=== PATIENT | male | born 1940 | race Caucasian/White ===

== ENCOUNTER → 2018-05-15 | Day surgery (SDC) | payer OTHER ==
[~2018-05-15] MED LIST: FENTANYL CITRATE/PF 100MCG/2 ML INJ ONE; GLIMEPIRIDE PO; IOPAMIDOL 610MG/1ML 300 MG/ML VIAL IV ONE; IRON PO; LANTUS 3ML100 UNITS/ SQ; LEVOFLOXACIN 250MG/D5W 50ML 50 ML ONE; LEVOFLOXACIN 500MG/D5W 100ML 100 ML IV ONE; LIDOCAINE HCL 2% LOCAL INJ 5 ML SDV VIAL INJ ONE; METFORMIN HCL500 MG PO; MORPHINE SULFATE 2 MG/ML SYR ONE; ONDANSETRON HCL INJ 2 MG/ML VIAL ONE; PROPOFOL IV EMULSION 10 MG/ML 20 ML VIAL ONE; SEVOFLURANE INHAL SOLN 250 ML PEN BTL ONE
--- NOTE | 2018-05-15 08:56 | Diagnostic Imaging Report ---
PROCEDURE: Frontal and lateral views of the chest. COMPARISON: None. INDICATIONS: PREOPERATIVE CHEST XRAY FOR NEPHROSTOGRAM FINDINGS: Lines/tubes: None. Lungs: The lungs are moderately inflated. There is no evidence of pneumonia or pulmonary edema. A 4 mm high density nodular opacity overlying the right lower lung, likely representing calcified granuloma. Pleura: There is no pleural effusion or pneumothorax. Heart and mediastinum: The cardiomediastinal silhouette is unremarkable. The thoracic aorta is tortuous. Bones: No acute bony abnormality. IMPRESSION: No acute cardiopulmonary disease. Dictated by: JANINE BAGLEY M.D. on 05/15/2018 at 9:03 Electronically approved by: JANINE BAGLEY M.D. on 05/15/2018 at 9:03
[2018-05-15 09:02] LABS: BASOPHILS # (AUTO) 0.1 (0.0-0.1); BASOPHILS % 0.7 % (0.0-1.0); EOSINOPHILS # (AUTO) 0.2 (0.0-0.4); EOSINOPHILS % 1.3 % (0.0-6.0); HEMOGLOBIN 9.5 g/dL (14.0-18.0); LYMPHOCYTES # (AUTO) 1.2 (1.0-3.2); LYMPHOCYTES % 11.1 % (18.0-39.1); MEAN CORPUSCULAR HEMOGLOBIN 27.5 pg (28-32); MEAN CORPUSCULAR HGB CONC 31.7 g/dL (31-35); MEAN CORPUSCULAR VOLUME 86.7 fL (81-99); MONOCYTES # (AUTO) 1.1 (0.2-0.8); MONOCYTES % 10.2 % (4.4-11.3); NEUTROPHILS # (AUTO) 8.6 (2.1-6.9); NEUTROPHILS % 76.4 % (38.7-80.0); PLATELET COUNT 274 x10e3/uL (140-360); RED BLOOD COUNT 3.46 x10e6/uL (4.3-5.7); RED CELL DISTRIBUTION WIDTH 14.3 % (11.7-14.4)
[2018-05-15 09:25] LABS: ANION GAP 15.8 mmol/L (8-16); CALCIUM 10.3 mg/dL (8.4-10.2); CREATININE, SERUM 2.14 mg/dL (0.72-1.25); POTASSIUM 3.8 mmol/L (3.5-5.1)
[2018-05-15 12:35] VITALS: BP 116/68
--- NOTE | 2018-05-15 19:47 | Operative Report ---
DATE OF PROCEDURE: May 15, 2018 SERVICE: Urology PREOPERATIVE DIAGNOSES 1. Left percutaneous nephrostomy. 2. Left double J-stent. 3. Urinary retention. 4. Ureterolithiasis. 5. Microhematuria. POSTOPERATIVE DIAGNOSES 1. Left percutaneous nephrostomy. 2. Left double J-stent. 3. Urinary retention. 4. Ureterolithiasis. 5. Microhematuria. 6. Bladder stones. OPERATIONS PERFORMED 1. Nephrostogram under fluoroscopic control. This is done for assessment of the nephrostomy tube and tract. 2. Removal of the percutaneous nephrostomy under fluoroscopic control. 3. Cystoscopy and cystolitholapaxy with removal of multiple bladder stones after fragmentation with the Holmium laser. Stones are larger than 2.5 cm. 4. Removal of double J-stent from the left side. 5. Left retrograde pyelograms under fluoroscopic control. 6. Ureteroscopy with laser fragmentation of ureteral calculus. 7. Removal of stone fragments from the left ureter. 8. Placement of double J-stent, 7-Arabic x 24 cm long to the left side. 9. Right retrograde pyelograms under fluoroscopic control. This was done with no connection to the left side done for further evaluation of history of nephrolithiasis on the right side as well. 10. Interpretation of x-ray. Radiologist not present. 11. Supervision of fluoroscopy. Radiologist not present. SOFTWARE LICENSING SPECIALIST: None. ANESTHESIA: General. CLINICAL INDICATION NOTE: This is a 78-year-old patient who was admitted to the [facility] for urinary retention. He did have blocking stone and hydronephrosis on the left side. At that time, he had placement of percutaneous nephrostomy and antegrade placement of a double J-stent. Patient was brought now for further assessment of the bladder and both upper tracts. Procedure was discussed with the patient. Potential benefits discussed, explained and accepted. DESCRIPTION OF PROCEDURE AND FINDINGS: After proper level of anesthesia was achieved, the patient was placed in lithotomy position and prepped and draped in the usual sterile fashion. Nephrostomy was prepped as well. Nephrostogram was then done under fluoroscopic control. The percutaneous nephrostomy is in good position. The system presently is not dilated. It did drain down into the bladder. It was not possible to identify clearly any stones along the ureter. The nephrostomy was then removed under fluoroscopic control. Following this, cystourethroscopy was done and right retrograde pyelograms were done under fluoroscopic control. This was done not connected to the other side for further evaluation of previous stones. No intrinsic stones were identified. There is no hydronephrosis. Following this, the double J-stent from the left side was pulled out to the urethral meatus. One guidewire was advanced up into the kidney. An open-end catheter was inserted. Retrograde pyelogram demonstrating a minimally dilated upper tract. There is a question of a stone in the distal ureter. The wire was kept in place and a flexible ureteroscopy was done. The stones were identified in the distal ureter. A semi-rigid ureteroscope was then inserted and the stones were fragmented and the stone basket removed. The double J-stent, 7-Arabic x 24 cm long was properly positioned on the left side. This was followed by fragmentation of multiple bladder stones and irrigating them out. Stone fragments were sent to the lab. A 20-Arabic Staples catheter with 10 mL balloon was reinserted. The patient was transferred in satisfactory condition to recovery. Of note, he has quite a very large prostate. He will be followed. Job#: [id number] RI
== END | disposition home or self-care (01) ==
LOC: OR 07:30
PROVIDERS: ATTEND Urology
DX: Z43.6 Encounter for attention to other artificial openings of urinary tract (principal); R33.9 Retention of urine, unspecified; N20.1 Calculus of ureter; N21.0 Calculus in bladder; R31.29 Other microscopic hematuria; Z88.0 Allergy status to penicillin; Z86.73 Personal history of transient ischemic attack (TIA), and cerebral infarction without residual deficits; E11.9 Type 2 diabetes mellitus without complications
CPT/HCPCS: 36415; 50389; 52325; 52332; 71046; 74420; 80048; 82948; 85025; 88300; 93005; C2617; J1956 ×2; J2001; J2270; J2405; Q9967

== ENCOUNTER → 2018-06-20 | Day surgery (SDC) | payer OTHER ==
[~2018-06-20] MED LIST changes: +AMLODIPINE BESY10 MG PO; +ASPIR-LOW81 MG; +BELLADONNA/OPIUM 60 MG SUPP PR ONE; +DEXAMETHASONE SOD PHOS INJ 4 MG/ML VIAL ONE; +EPHEDRINE SULFATE INJ 50 MG/10 ML SYR ONE; -MORPHINE SULFATE 2 MG/ML SYR ONE; +PHENYLEPHRINE HCL 1% 10 MG/ML VIAL ONE; +TAMSULOSIN HCL0.4 MG
[2018-06-20 10:20] LABS: EOSINOPHILS % 2.2 % (0.0-6.0); HEMATOCRIT 34.9 % (38.2-49.6); LYMPHOCYTES % 20.2 % (18.0-39.1); MEAN CORPUSCULAR HEMOGLOBIN 27.4 pg (28-32); MEAN CORPUSCULAR HGB CONC 31.5 g/dL (31-35); MONOCYTES % 8.4 % (4.4-11.3); NEUTROPHILS # (AUTO) 4.3 (2.1-6.9); NEUTROPHILS % 67.2 % (38.7-80.0); PLATELET COUNT 309 x10e3/uL (140-360); RED BLOOD COUNT 4.01 x10e6/uL (4.3-5.7); RED CELL DISTRIBUTION WIDTH 14.5 % (11.7-14.4)
[2018-06-20 10:21] LABS: BASOPHILS # (AUTO) 0.1 (0.0-0.1); EOSINOPHILS # (AUTO) 0.1 (0.0-0.4); LYMPHOCYTES # (AUTO) 1.3 (1.0-3.2); MONOCYTES # (AUTO) 0.5 (0.2-0.8)
[2018-06-20 10:30] LABS: ANION GAP 17.9 mmol/L (8-16); CALCIUM 10.4 mg/dL (8.4-10.2); CREATININE, SERUM 2.22 mg/dL (0.72-1.25); POTASSIUM 4.9 mmol/L (3.5-5.1)
[2018-06-20 13:30] VITALS: BP 130/62
--- NOTE | 2018-06-20 23:55 | Operative Report ---
DATE OF PROCEDURE: June 20, 2018 SERVICE: Urology. PREOPERATIVE DIAGNOSES 1. Double-J stent on the left side. 2. History of left hydronephrosis. 3. History of nephrolithiasis. 4. BPH with obstruction. 5. Renal failure. POSTOPERATIVE DIAGNOSES 1. Double-J stent on the left side. 2. History of left hydronephrosis. 3. History of nephrolithiasis. 4. BPH with obstruction. 5. Renal failure. OPERATIONS PERFORMED 1. Cystoscopy and right retrograde pyelogram under fluoroscopic control. This was done with separate instrument and not related to contralateral side. 2. Removal of double-J stent from the left side. 3. Left retrograde pyelograms under fluoroscopic control. 4. Left ureteroscopy. 5. Interpretation of x-ray. Radiologist not present. 6. Supervision of fluoroscopy. Radiologist not present. 7. Plasma removal of the prostate. TELEVISION INSTALLER: None. ANESTHESIA: General. CLINICAL INDICATION NOTE: This is a 78-year-old patient that has a history of nephrolithiasis bilaterally. He was also treated by id for a stone in the distal ureter on the left side, has a double-J stent in place. Patient had urinary retention, has a Staples catheter. He was brought for assessment on upper and lower tracts bilaterally and removal of the obstructing prostate. Procedure was discussed with patient, his son, potential benefit and complication discussed, explained, and accepted. DESCRIPTION OF PROCEDURE AND FINDINGS: After proper level of anesthesia was achieved, the patient was placed in lithotomy position, prepped and draped in a sterile fashion. Urethra inspected, is unremarkable. The outlet is obstructed by trilobar prostate. Bladder is trabeculated. Double-J stent is protruding from the left ureteral orifice. Open-ended catheter was inserted to the right side and retrograde pyelogram demonstrating an unremarkable collecting system on that side. Following this, the double-J stent was removed from the left side. Open-ended catheter was kept and retrograde pyelograms demonstrating some minimal dilation of the upper collecting system. A guidewire was kept in place and flexible ureteroscopy was done. No intrinsic lesions or stones were identified. Following this, the scope was removed. Bladder was irrigated. Following this, resectoscope was inserted and the plasma instrument was used to remove prostatic tissue. Midlobe was treated first and then, the 2 lateral lobes. Care was taken not to remove any tissue distal to the verumontanum. Any visible bleeding points were carefully coagulated. The bladder was filled up with irrigation fluid . The scope was removed and Crede maneuver demonstrated good flow. A 22-Divehi 3-way Staples catheter with 30 mL balloon was then inserted. Patient had placement of a B and O suppository as well, was transferred in satisfactory condition to recovery room and he will be followed. Postop instructions given. Job#: [id number]
== END | disposition home or self-care (01) ==
LOC: OR 09:04
PROVIDERS: ATTEND Urology
DX: N40.1 Benign prostatic hyperplasia with lower urinary tract symptoms (principal); N13.8 Other obstructive and reflux uropathy; R33.8 Other retention of urine; Z46.6 Encounter for fitting and adjustment of urinary device; N18.9 Chronic kidney disease, unspecified; Z88.0 Allergy status to penicillin; Z86.73 Personal history of transient ischemic attack (TIA), and cerebral infarction without residual deficits; Z85.038 Personal history of other malignant neoplasm of large intestine; Z79.4 Long term (current) use of insulin; E11.22 Type 2 diabetes mellitus with diabetic chronic kidney disease; I12.9 Hypertensive chronic kidney disease with stage 1 through stage 4 chronic kidney disease, or unspecified chronic kidney disease
CPT/HCPCS: 36415; 52310; 52601; 74420; 80048; 82948; 85025; J1100; J1956 ×2; J2001; J2370; J2405; J2704; Q9967